=== PATIENT | female | born 1940 | race Caucasian/White ===

== ENCOUNTER → 2016-09-26 | Outpatient (CLI) | payer MEDICARE ==
[~2016-09-26] MED LIST: ATEN100T PO; DIAZ5TAB4 PO; HYDR-3138 PO; HYDR50TA3 PO; LOVA20TA2 PO; OMEP-110 PO; POTA10TA90 PO; PRED5TAB PO
== END | disposition home or self-care (01) ==
LOC: RAD 08:29
PROVIDERS: ATTEND Internal Medicine Rheumatology
DX: M48.02 Spinal stenosis, cervical region (principal); M48.06 Spinal stenosis, lumbar region; M54.12 Radiculopathy, cervical region; M47.892 Other spondylosis, cervical region; M25.78 Osteophyte, vertebrae; M47.896 Other spondylosis, lumbar region; M40.40 Postural lordosis, site unspecified; E88.2 Lipomatosis, not elsewhere classified; M54.40 Lumbago with sciatica, unspecified side
CPT/HCPCS: 72141; 72148

== ENCOUNTER → 2016-10-08 | Outpatient (CLI) | payer MEDICARE | END | disposition home or self-care (01) | LOC: WOUND 09:05 | PROVIDERS: ATTEND Physician Assistant | DX: S81.802A Unspecified open wound, left lower leg, initial encounter (principal); G60.3 Idiopathic progressive neuropathy; M43.19 Spondylolisthesis, multiple sites in spine; I10 Essential (primary) hypertension; E78.5 Hyperlipidemia, unspecified; K21.9 Gastro-esophageal reflux disease without esophagitis; F41.8 Other specified anxiety disorders; M19.90 Unspecified osteoarthritis, unspecified site; Z87.891 Personal history of nicotine dependence; Z72.89 Other problems related to lifestyle; X58.XXXA Exposure to other specified factors, initial encounter; Y93.89 Activity, other specified; Y92.89 Other specified places as the place of occurrence of the external cause; Y99.8 Other external cause status | CPT/HCPCS: 11043; G0463; WOU0463 ==

== ENCOUNTER → 2016-10-15 | Outpatient (CLI) | payer MEDICARE ==
[~2016-10-15] MED LIST changes: +GABA100C8 PO; +POTA20TA14 PO
== END | disposition home or self-care (01) ==
LOC: WOUND 08:47
PROVIDERS: ATTEND Physician Assistant
DX: E11.622 Type 2 diabetes mellitus with other skin ulcer (principal); L97.823 Non-pressure chronic ulcer of other part of left lower leg with necrosis of muscle; E11.40 Type 2 diabetes mellitus with diabetic neuropathy, unspecified; M43.19 Spondylolisthesis, multiple sites in spine; I10 Essential (primary) hypertension; E78.5 Hyperlipidemia, unspecified; K21.9 Gastro-esophageal reflux disease without esophagitis; F41.9 Anxiety disorder, unspecified; M19.90 Unspecified osteoarthritis, unspecified site; Z87.891 Personal history of nicotine dependence; Z72.89 Other problems related to lifestyle
CPT/HCPCS: 97597

== ENCOUNTER → 2016-10-17 | Outpatient (CLI) | payer MEDICARE ==
[2016-10-17 11:47] LABS: BLOOD UREA NITROGEN 14 mg/dL (7-18)
[2016-10-17 11:50] LABS: ASPARTATE AMINO TRANSFERASE 23 U/L (15-37)
== END | disposition home or self-care (01) ==
LOC: STAR 10:13
PROVIDERS: ATTEND Neurological Surgery
DX: Z01.818 Encounter for other preprocedural examination (principal); M47.12 Other spondylosis with myelopathy, cervical region; R79.1 Abnormal coagulation profile
CPT/HCPCS: 36415; 71020; 80053; 85025; 85610; 85730; 93005

== ENCOUNTER 2016-10-24 05:52 | Inpatient (IN) | payer MEDICARE ==
[~2016-10-24] VITALS: Ht 165.1 cm; Wt 71.9 kg
[2016-10-24] MEDS ORDERED: LACTATED RINGERS 1,000 ML IV SCH (06:12)
[2016-10-24 06:13] VITALS: BP 161/87
[2016-10-24] MEDS ORDERED: BACITRACIN 50,000 UNIT ONE (07:03)
[2016-10-24] MEDS ORDERED: BUPIVACAINE/PF-EPI 0.5% 1:200K ONE (07:03)
[2016-10-24] MEDS ORDERED: THROMBIN 5,000 UNIT VIAL TP ONE (07:03)
[2016-10-24] MEDS ORDERED: KETAMINE 10 MG/ML, 20ML ONE (07:18)
[2016-10-24] MEDS ORDERED: FENTANYL PF 250 MCG/5ML ONE (07:19)
[2016-10-24] MEDS ORDERED: HYDROCORTISONE 250 MG/2 ML ONE (07:22)
[2016-10-24] MEDS ORDERED: PROPOFOL 10 MG/ML, 50ML ONE (07:37)
[2016-10-24] MEDS ORDERED: CEFAZOLIN 1,000 MG ONE (07:37)
[2016-10-24] MEDS ORDERED: PROPOFOL 10 MG/ML, 20ML ONE (07:37)
[2016-10-24] MEDS ORDERED: ONDANSETRON 2MG/ML, 2ML ONE ×3 (07:37→14:16)
[2016-10-24] MEDS ORDERED: EPHEDRINE 50 MG/ML, 1ML ONE (07:37)
[2016-10-24] MEDS ORDERED: FENTANYL PF 100 MCG/2ML ONE ×2 (08:54→10:57)
[2016-10-24] MEDS ORDERED: OXYcodone 5 MG/5 ML ORAL.SOL UDC PO PRN (09:30)
[2016-10-24] MEDS ORDERED: ACETAMINOPHEN 325 MG TABLET PO PRN ×2 (09:30→12:30)
[2016-10-24] MEDS ORDERED: FENTANYL PF 100 MCG/2ML IV PRN (09:30)
[2016-10-24] MEDS ORDERED: hydrALAzine 20 MG/ML, 1ML IV PRN (09:30)
[2016-10-24] MEDS ORDERED: ONDANSETRON 2MG/ML, 2ML IVPush PRN (09:30)
[2016-10-24] MEDS ORDERED: LABETALOL 5MG/ML, 20ML IV PRN (09:30)
[2016-10-24] MEDS ORDERED: BACITRACIN OINT 500U/GM, 15 GM ONE (10:54)
[2016-10-24] MEDS ORDERED: HYDROmorphone 2 MG/ML, 1ML ONE (11:46)
[2016-10-24] MEDS ORDERED: DIAZEPAM 5 MG/ML, 2ML ONE (11:46)
[2016-10-24] MEDS: HYDROmorphone 1 MG/ML, 1ML IV PRN ×2 (11:49→12:15)
[2016-10-24] MEDS: DIAZEPAM 5 MG/ML, 2ML IV PRN ×2 (11:50→12:15)
[2016-10-24] MEDS ORDERED: BISACODYL 10 MG SUPP PR PRN (12:30)
[2016-10-24] MEDS ORDERED: PROMETHAZINE 25 MG/ML, 1ML IM PRN (12:30)
[2016-10-24] MEDS ORDERED: PHARMACY MAY ADJ FOR RENAL FX MC PRN (12:30)
[2016-10-24] MEDS ORDERED: LABETALOL 5MG/ML, 20ML IVPush PRN (12:30)
[2016-10-24] MEDS: ONDANSETRON 2MG/ML, 2ML IVPush PRN ×2 (13:28→14:21)
[2016-10-24 14:56] VITALS: BP 152/89
[2016-10-24] MEDS: CEFAZOLIN PMX 1GM/50ML 50 ML IVPB SCH (16:36)
[2016-10-24] MEDS: D5%-0.9% NACL+KCL 20MEQ 1,000 ML IV SCH (16:36)
[2016-10-24 19:07] VITALS: BP 127/85
[2016-10-24] MEDS: DIAZEPAM 5 MG TABLET PO PRN (22:53)
[2016-10-24] MEDS: SIMVASTATIN 10 MG TABLET PO SCH (22:53)
[2016-10-24] MEDS: GABAPENTIN 100 MG CAPSULE PO SCH (22:53)
[2016-10-24 23:33] VITALS: BP 126/75
[2016-10-25] MEDS: CEFAZOLIN PMX 1GM/50ML 50 ML IVPB SCH (00:52)
[2016-10-25] MEDS: D5%-0.9% NACL+KCL 20MEQ 1,000 ML IV SCH ×2 (02:14→13:51)
[2016-10-25 03:18] VITALS: BP 154/74
[2016-10-25] MEDS: ATENOLOL 100 MG TABLET PO SCH (06:15)
[2016-10-25 06:30] VITALS: BP 152/88
[2016-10-25] MEDS: OMEPRAZOLE 20 MG CAPSULE.DR PO SCH (09:29)
[2016-10-25] MEDS: POTASSIUM CHLORIDE 20 MEQ TAB.ER.PRT PO SCH (09:29)
[2016-10-25] MEDS: GABAPENTIN 100 MG CAPSULE PO SCH ×2 (09:29→20:03)
[2016-10-25] MEDS: OXYcodone/APAP 5/325MG TABLET PO PRN ×5 (11:20→23:59)
[2016-10-25 13:30] VITALS: BP 148/78
[2016-10-25] MEDS: SENNA/DOCUSATE TABLET PO PRN (15:54)
[2016-10-25 18:34] VITALS: BP 123/83
[2016-10-25] MEDS: SIMVASTATIN 10 MG TABLET PO SCH (20:04)
[2016-10-25] MEDS: MAGNESIUM HYDROXIDE 8%, 30ML UDC PO PRN (23:35)
[2016-10-26] MEDS: D5%-0.9% NACL+KCL 20MEQ 1,000 ML IV SCH ×3 (00:02→17:00)
[2016-10-26 01:09] VITALS: BP 149/93
[2016-10-26 05:29] VITALS: BP 171/101
[2016-10-26] MEDS: ATENOLOL 100 MG TABLET PO SCH (05:34)
[2016-10-26] MEDS: OXYcodone/APAP 5/325MG TABLET PO PRN ×4 (05:34→20:28)
[2016-10-26] MEDS: GABAPENTIN 100 MG CAPSULE PO SCH ×2 (07:58→21:50)
[2016-10-26] MEDS: POTASSIUM CHLORIDE 20 MEQ TAB.ER.PRT PO SCH (07:58)
[2016-10-26] MEDS: OMEPRAZOLE 20 MG CAPSULE.DR PO SCH (07:58)
[2016-10-26] MEDS: SENNA/DOCUSATE TABLET PO PRN (08:01)
[2016-10-26 08:07] VITALS: BP 159/94
[2016-10-26] MEDS: DIPHENHYDRAMINE 25 MG CAPSULE PO PRN (11:05)
[2016-10-26 13:57] VITALS: BP 161/91
[2016-10-26 19:08] VITALS: BP 167/108
[2016-10-26] MEDS: SIMVASTATIN 10 MG TABLET PO SCH (21:50)
[2016-10-26] MEDS: DIAZEPAM 5 MG TABLET PO PRN (21:50)
[2016-10-27 00:38] VITALS: BP 166/95
[2016-10-27] MEDS: OXYcodone/APAP 5/325MG TABLET PO PRN ×5 (00:50→18:40)
[2016-10-27 01:48] VITALS: BP 146/88
[2016-10-27] MEDS: D5%-0.9% NACL+KCL 20MEQ 1,000 ML IV SCH ×3 (03:00→23:00)
[2016-10-27] MEDS: ATENOLOL 100 MG TABLET PO SCH (06:10)
[2016-10-27 07:50] VITALS: BP 173/102
[2016-10-27] MEDS: OMEPRAZOLE 20 MG CAPSULE.DR PO SCH (08:20)
[2016-10-27] MEDS: DIPHENHYDRAMINE 25 MG CAPSULE PO PRN ×2 (08:20→16:10)
[2016-10-27] MEDS: POTASSIUM CHLORIDE 20 MEQ TAB.ER.PRT PO SCH (08:20)
[2016-10-27] MEDS: GABAPENTIN 100 MG CAPSULE PO SCH ×2 (08:21→20:30)
[2016-10-27 08:27] VITALS: BP 146/81
[2016-10-27 13:50] VITALS: BP 165/92
[2016-10-27 18:09] LABS: PATH.CAST-FLAG NOT PRESENT; SPERM-FLAG NOT PRESENT; SRC-FLAG NOT PRESENT; XTAL-FLAG NOT PRESENT; YLC-FLAG NOT PRESENT
[2016-10-27] MEDS: DIAZEPAM 5 MG TABLET PO PRN (18:46)
[2016-10-27] MEDS: SIMVASTATIN 10 MG TABLET PO SCH (20:30)
[2016-10-27 21:11] VITALS: BP 138/83
[2016-10-28] MEDS: OXYcodone/APAP 5/325MG TABLET PO PRN ×4 (00:25→14:03)
[2016-10-28 00:31] VITALS: BP 165/84
[2016-10-28] MEDS: ATENOLOL 100 MG TABLET PO SCH (05:30)
[2016-10-28] MEDS: DIPHENHYDRAMINE 25 MG CAPSULE PO PRN (05:49)
[2016-10-28] MEDS: POTASSIUM CHLORIDE 20 MEQ TAB.ER.PRT PO SCH (07:44)
[2016-10-28] MEDS: OMEPRAZOLE 20 MG CAPSULE.DR PO SCH (07:44)
[2016-10-28] MEDS: SENNA/DOCUSATE TABLET PO PRN (07:44)
[2016-10-28] MEDS: GABAPENTIN 100 MG CAPSULE PO SCH ×2 (07:44→07:51)
[2016-10-28] MEDS: D5%-0.9% NACL+KCL 20MEQ 1,000 ML IV SCH (07:45)
[2016-10-28 07:48] VITALS: BP 150/70
[2016-10-28] MEDS: MAGNESIUM HYDROXIDE 8%, 30ML UDC PO PRN (07:52)
[2016-10-28] MEDS ORDERED: OXYC-302 PO (12:58)
[2016-10-28] MEDS ORDERED: DIAZ5TAB PO (12:59)
[2016-10-28 13:43] VITALS: BP 143/85
== END 2016-10-28 14:25 | DRG 472 ==
LOC: ORIP 05:52 → 4NOR 14:45
PROVIDERS: ADMIT Neurological Surgery; ATTEND Neurological Surgery
PROC: 0RB30ZZ Excision of Cervical Vertebral Disc, Open Approach (ICD-10-PCS; 2016-10-24)
PROC: 4A11X4G Monitoring of Peripheral Nervous Electrical Activity, Intraoperative, External Approach (ICD-10-PCS; 2016-10-24)
PROC: 0RG20A1 (ICD-10-PCS; principal; 2016-10-24 07:30)
PROC: 0T9B70Z Drainage of Bladder with Drainage Device, Via Natural or Artificial Opening (ICD-10-PCS; 2016-10-27)
DX: M48.02 Spinal stenosis, cervical region (principal); M47.12 Other spondylosis with myelopathy, cervical region; M40.202 Unspecified kyphosis, cervical region
CPT/HCPCS: 72040; 81001; 87077; 87086; 87186; 95938; 95941; C1713; C1729; C1776; J0690; J1170; J1720; J2270; J2405; J2550; J2704; J3010; J3360; J3480; J7120; J7512; Q0163

== ENCOUNTER → 2016-11-29 | Outpatient (CLI) | payer MEDICARE ==
[~2016-11-29] MED LIST changes: +DIAZ5TAB PO; +GABA-826 PO; -GABA100C8 PO; +OXYC-302 PO
== END | disposition home or self-care (01) ==
LOC: CFH 10:39
PROVIDERS: ATTEND Neurological Surgery
DX: S13.140A Subluxation of C3/C4 cervical vertebrae, initial encounter (principal); M47.12 Other spondylosis with myelopathy, cervical region; Z98.1 Arthrodesis status; X58.XXXA Exposure to other specified factors, initial encounter; Y93.89 Activity, other specified; Y92.89 Other specified places as the place of occurrence of the external cause; Y99.8 Other external cause status
CPT/HCPCS: 72050

== ENCOUNTER → 2017-01-03 | Outpatient (CLI) | payer MEDICARE | END | disposition home or self-care (01) | LOC: CFH 10:38 | PROVIDERS: ATTEND Neurological Surgery | DX: S13.130A Subluxation of C2/C3 cervical vertebrae, initial encounter (principal); S13.140A Subluxation of C3/C4 cervical vertebrae, initial encounter; M47.12 Other spondylosis with myelopathy, cervical region; M43.22 Fusion of spine, cervical region; X58.XXXA Exposure to other specified factors, initial encounter; Y93.89 Activity, other specified; Y92.89 Other specified places as the place of occurrence of the external cause; Y99.8 Other external cause status | CPT/HCPCS: 72040 ==

== ENCOUNTER → 2017-03-05 | Outpatient (CLI) | payer MEDICARE ==
[~2017-03-05] MED LIST changes: -HYDR-3138 PO; +HYDR-3237 PO; +POTA10TA6 PO; -POTA10TA90 PO
== END | disposition home or self-care (01) ==
LOC: CFH 09:10
PROVIDERS: ATTEND Neurological Surgery
DX: M50.03 Cervical disc disorder with myelopathy, cervicothoracic region (principal); M43.12 Spondylolisthesis, cervical region; Z98.890 Other specified postprocedural states
CPT/HCPCS: 72040

== ENCOUNTER → 2017-07-04 | Outpatient (CLI) | payer MEDICARE | END | disposition home or self-care (01) | LOC: CFH 09:00 | PROVIDERS: ATTEND Neurological Surgery | DX: M47.12 Other spondylosis with myelopathy, cervical region (principal); M43.5X2 Other recurrent vertebral dislocation, cervical region | CPT/HCPCS: 72040 ==

== ENCOUNTER → 2017-12-30 | Outpatient (CLI) | payer MEDICARE | END | disposition home or self-care (01) | LOC: CFH 10:00 | PROVIDERS: ATTEND Neurological Surgery | DX: M48.54XA Collapsed vertebra, not elsewhere classified, thoracic region, initial encounter for fracture (principal); M51.36 Other intervertebral disc degeneration, lumbar region; I71.4 Abdominal aortic aneurysm, without rupture | CPT/HCPCS: 72072; 72100 ==

== ENCOUNTER → 2019-04-20 | Outpatient (CLI) | payer MEDICARE ==
[~2019-04-20] MED LIST changes: +ACET325T26 PO; +ACID1TAB7 PO; +ALEN10TA7 PO; +CALC1TAB68 PO; +CARV6.2512 PO; +LOSA50TA2 PO; +METO-99 PO; +TIZA4CAP PO
== END | disposition home or self-care (01) ==
LOC: CFH 09:08
PROVIDERS: ATTEND Physician Assistant Surgical
DX: M43.16 Spondylolisthesis, lumbar region (principal); M48.56XA Collapsed vertebra, not elsewhere classified, lumbar region, initial encounter for fracture
CPT/HCPCS: 72100

== ENCOUNTER → 2019-06-12 | Outpatient (CLI) | payer MEDICARE | END | disposition home or self-care (01) | LOC: CFH 09:24 | PROVIDERS: ATTEND Neurological Surgery | DX: S33.140A Subluxation of L4/L5 lumbar vertebra, initial encounter (principal); M47.816 Spondylosis without myelopathy or radiculopathy, lumbar region; M43.8X6 Other specified deforming dorsopathies, lumbar region; X58.XXXA Exposure to other specified factors, initial encounter; Y93.89 Activity, other specified; Y92.89 Other specified places as the place of occurrence of the external cause; Y99.8 Other external cause status | CPT/HCPCS: 72100 ==